=== PATIENT | female | born 1950 | race Caucasian/White ===

== ENCOUNTER 2018-02-05 13:14 | Emergency (ER) | payer OTHER, MEDICARE ==
[~2018-02-05] VITALS: Ht 152.4 cm; Wt 59.4 kg
[~2018-02-05 13:14] MED LIST: LISINOPRIL10 M1 PO; SULFAMETHOXAZO1 EAC1 PO
--- NOTE | 2018-02-05 13:41 | ED DYSPNEA/ASTHMA COMPLAINT ---
History of Present Illness General Chief Complaint: Dyspnea (COPD, CHF, Other) Stated Complaint: NOISY RESPIRATIONS Source: patient, old records Exam Limitations: no limitations Vital Signs & Intake/Output Vital Signs & Intake/Output Vital Signs Date Time Temp Pulse Resp B/P B/P Pulse O2 O2 Flow FiO2 Mean Ox Delivery Rate 02/05 1630 98.4 123 20 174/99 90 02/05 1623 90 02/05 1439 98.0 100 18 170/80 98 Nasal 2.0L Cannula 02/05 1431 98 Nasal 2.0L Cannula 02/05 1422 94 02/05 1339 164/96 02/05 1321 98.0 113 20 221/113 91 Room Air Allergies Coded Allergies: No Known Allergies (02/05/18) Reconcile Medications Albuterol Sulfate (Ventolin Hfa) 90 MCG HFA.AER.AD 2 PUF INH AD PRN RESP. ( Reported) Aspirin/Acetaminophen/Caffeine (Excedrin Extra Strength Caplet) 250 MG-250 MG-65 MG TABLET 1 TAB PO 4XDAILY PRN PAIN (Reported) Ipratropium/Albuterol Sulfate (Iprat-Albut 0.5-3(2.5) MG/3 Ml) 0.5 MG-3 MG (2.5 MG BASE)/3 ML AMPUL.NEB 1 Vial INH BID PRN SHORTNESS OF BREATH Levofloxacin 500 MG TABLET 1 TAB PO DAILY ABX (Reported) Lorazepam 0.5 MG TABLET 1 TAB PO BID PRN ANXIETY (Reported) Nebulizer (Aeroeclipse II) 1 EACH EACH 1 UNIT N BID PRN SHORTNESS OF BREATH Prednisone (Unknown Strength) TABLET (Unknown Dose) PO AD STEROID (Reported) Triage Note: RECEIVED 67 YO FEMALE FILIBERTO FROM HOME WITH HX OF LUNG CA AND COPD, PT REPORTS NOISY INSPIRATIONS X ONE MONTH, GETTING WORSE WITH SHORTNESS OF BREATH. INSPIRATORY STRIDOR TYPE NOISE NOTED, O2 SATS 91% ON ROOM AIR. NO ACUTE DISTRESS NOTED, MILD SHORTNESS OF BREATH, PT REPORTS IT IS NOT WORSE THAN NORMAL LATELY. Triage Nurses Notes Reviewed? yes HPI: 67 y/o female with PMHx of COPD and small cell lung cancer presents to the ED with having trouble breathing for the past month. Pt states she was at her cancer center two days ago where she was put on oxygen and she felt much better. She also states how when she bends over she feels like she can breathe better, although she still feels like she is not getting the full oxygen she needs. Pt's explains how she wakes up every night making loud sounds of gasping for air and he is worried something may be wrong. Pt was prescribed levofloxacin and prednisone two days ago at the cancer center clinic but was not able to say why she was given the levofloxacin. The only other associated symptom is nasal congestion for which she uses Afrin with relief. Pt denies fever, chills, CP, N/ V/D, fatigue, light headedness, or recent travel. Past History Travel History Traveled to [place] past 21 day No Medical History Any Pertinent Medical History? 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 No Review of Systems Review of Systems Constitutional: Reports: see HPI. EENTM: Reports: no symptoms. Respiratory: Reports: no symptoms. Cardiovascular: Reports: no symptoms. GI: Reports: no symptoms. Genitourinary: Reports: no symptoms. Musculoskeletal: Reports: no symptoms. Skin: Reports: no symptoms. Neurological/Psychological: Reports: no symptoms. Hematologic/Endocrine: Reports: no symptoms. Immunologic/Allergic: Reports: no symptoms. All Other Systems: Reviewed and Negative Physical Exam Physical Exam General Appearance: well developed/nourished, mild distress Head: atraumatic, normal appearance Eyes: Bilateral: normal appearance. Ears, Nose, Throat: normal pharynx, normal ENT inspection, hearing grossly normal Neck: normal inspection, full range of motion Respiratory: stridor, wheezing Cardiovascular: regular rate/rhythm Gastrointestinal: soft, non-tender Extremities: normal inspection, normal range of motion Neurologic/Psych: awake, alert, oriented x 3, normal mood/affect Skin: intact, normal color, warm/dry Core Measures ACS in differential dx? No CVA/TIA Diagnosis No Sepsis Present: No Sepsis Focused Exam Completed? No Progress Differential Diagnosis: asthma, AMI, altitude sickness, bronchitis, costochondritis, CHF, COPD, musculoskeletal pain, pericarditis, pulmonary embolism, pneumonia, pneumothorax, rib fracture, unstable angina Plan of Care: Orders Procedure Date/time Status URINALYSIS 02/05 143 Complete TROPONIN LEVEL 02/05 1339 Complete COMPREHENSIVE METABOLIC PANEL 02/05 133 Complete CBC WITHOUT DIFFERENTIAL 02/05 133 Complete EKG 02/05 1339 Active Laboratory Tests 02/05/18 1432: Anion Gap 12, Estimated GFR > 60, BUN/Creatinine Ratio 38.0 H, Glucose 142 H, Calcium 9.9, Total Bilirubin 0.4, AST 15, ALT 25, Alkaline Phosphatase 61, Troponin I < 0.01, Total Protein 7.4, Albumin 4.5, Globulin 2.9, Albumin/ Globulin Ratio 1.6, CBC w Diff MAN DIFF ORDERED, RBC 4.67, MCV 92.4, MCH 30.7, MCHC 33.3, RDW 12.8, MPV 6.8 L, Gran % 93.3 H, Lymphocytes % 5.3 L, Monocytes % 1.3 L, Eosinophils % 0, Basophils % 0.1, Absolute Granulocytes 6.9 H, Absolute Lymphocytes 0.4 L, Absolute Monocytes 0.1, Absolute Eosinophils 0, Absolute Basophils 0, Platelet Estimate VERIFIED BY SMEAR, Normocytic RBCs VERIFIED, Normochromic RBCs VERIFIED 02/05/18 1430: Urine Color YEL, Urine Clarity CLEAR, Urine pH 6.0, Ur Specific [place] 1.020, Urine Protein NEG, Urine Ketones TRACE H, Urine Nitrite NEG, Urine Bilirubin NEG, Urine Urobilinogen 0.2, Ur Leukocyte Esterase SMALL H, Ur Microscopic SEDIMENT EXAMINED, Urine RBC 3-5, Urine WBC 3-5 H, Ur Epithelial Cells FEW, Urine Crystals RARE [place], Urine Bacteria FEW H, Urine Mucus FEW, Urine Hemoglobin SMALL H, Urine Glucose NEG Breathing improved considerably and stridor resolved. Oxygenation improved. Admission to medicine was offered to patient, who repeatedly refused. It was explained that the risk of leaving could lead to worsening breathing, confusion, inability to breathe, choking, coma, . 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 She has insight and understands the risks. Diagnostic Imaging: Viewed by Me: Radiology Read, CT Scan. Discussed w/RAD: Radiology Read, CT Scan. Radiology Impression: PATIENT: SONDRA MEJIAS PRESENT AGE: 67 PATIENT ACCOUNT NO: [id number] : 51 LOCATION: [facility] ORDERING PHYSICIAN: Moisés Stewart MD SERVICE DATE: 02/05/18 EXAM TYPE: CAT - CT NECK W IV CONTRAST EXAMINATION: CT NECK WITH CONTRAST CLINICAL INFORMATION: Stridor. COMPARISON: Chest CT 02/03/2018 and neck radiographs performed earlier the same day. TECHNIQUE: Multidetector CT acquisition of the neck is obtained following the administration of 95 mL of Optiray 320 intravenous contrast without complication. FINDINGS: No inflammation or significant narrowing associated with the subglottic airway nor the trachea. Persistent though decreased dependent secretions within the trachea at the level of the thoracic inlet. The parotid glands are homogeneous in attenuation. The submandibular glands are normal. Small subcentimeter thyroid nodules. No contour abnormality or pathologic enhancement is seen within the oral cavity or pharyngeal mucosal space. No retropharyngeal fluid collection is seen. The laryngeal structures are normal. The parapharyngeal fat is preserved. Atherosclerotic disease involving the carotid bifurcations bilaterally, greater on the left side where there is a suspected 50% stenosis of the proximal left cervical ICA. There is a right IJ Port-A-Cath. Soft tissue thickening and reticulonodular parenchymal opacities within the right suprahilar region are stable in comparison to the 02/03/[address] fibrotic changes associated with the right hilum are stable. Unchanged 6 mm nodule in the right upper lobe. Scarring within the upper lungs bilaterally again noted. The mastoid air cells and visualized portions of the paranasal sinuses are well-aerated. There is a 1.4 cm defect within the cartilaginous nasal septum. There is severe disc volume loss at C5-C6. No suspicious intraosseous lesions. Cerebral volume loss and chronic microangiopathy. IMPRESSION: - No inflammation or significant narrowing associated with the subglottic airway nor the trachea. - Persistent though decreased dependent secretions within the trachea at the level of the thoracic inlet. - Soft tissue thickening and reticulonodular parenchymal opacities in the right suprahilar region are stable in comparison to the 02/04/[address] as is a 6 mm nodule within the right upper lobe. Scarring within the upper lungs bilaterally again noted. - Small subcentimeter thyroid nodules. - There is a 1.4 cm defect within the cartilaginous nasal septum. DICTATED BY: Adonay Cody MD DATE/TIME DICTATED:02/05/181821 PATIENT CARE TECHNICIAN:SILVIA DATE/TIME TRANSCRIBED:1821 CONFIDENTIAL, DO NOT COPY WITHOUT APPROPRIATE AUTHORIZATION. < Electronically signed in Other Vendor System> SIGNED BY: Adonay Cody MD 02/05/18 1836, PATIENT: SONDRA MEJIAS PRESENT AGE: 67 PATIENT ACCOUNT NO: [id number] : 51 LOCATION: [facility] ORDERING PHYSICIAN: Moisés Stewart MD SERVICE DATE: 02/05/18 EXAM TYPE: RAD - XRY-SOFT TISSUE NECK EXAMINATION: XR SOFT TISSUE NECK CLINICAL INDICATION: Bilateral coarse breath sounds and shortness of breath. COMPARISON: None TECHNIQUE: 2 views of the soft tissue neck were obtained. FINDINGS: There is a slight cervicothoracic scoliosis, which likely accounts for the slight deviation of the airway to the right side. There is slight steepling of the subglottic trachea is seen in the lower cervical spine, raising the suspicion of croup. On the lateral view, there is slight ballooning of the hypopharynx. Prevertebral soft tissues are normal in thickness. Portions of the tunneled right jugular catheter are included. Moderate degenerative changes as seen in the lower cervical spine. IMPRESSION: Above findings are suspicious for croup/laryngotracheobronchitis. Close clinical correlation requested. DICTATED BY: Deidra Angel MD DATE/TIME DICTATED:02/05/181613 PATIENT CARE TECHNICIAN:SILVIA DATE/TIME TRANSCRIBED:1613 CONFIDENTIAL, DO NOT COPY WITHOUT APPROPRIATE AUTHORIZATION. < Electronically signed in Other Vendor System> SIGNED BY: Deidra Angel MD 02/05/18 1625 CXR Impression: PATIENT: SONDRA MEJIAS PRESENT AGE: 67 PATIENT ACCOUNT NO: [id number] : 51 LOCATION: [facility] ORDERING PHYSICIAN: Moisés Stewart MD SERVICE DATE: 02/05/18-1340 EXAM TYPE: RAD - XRY-CHEST XRAY, TWO VIEWS EXAMINATION: XR CHEST 2 VIEWS CLINICAL INFORMATION: Bilateral coarse breath sounds and shortness of breath; question congestive heart failure. COMPARISON: CT thorax dated 02/03/2018; chest radiograph dated 03/25/2016. TECHNIQUE: Frontal and lateral views of the chest were obtained. FINDINGS: The heart, great vessels, pulmonary vasculature and mediastinum are normal. The lungs show no focal infiltrate, effusion or pneumothorax. There is a stable small right upper lobe nodule, less well appreciated than on the accompanying CT examinations. Right base nipple shadow noted on the frontal view. There is no acute osseous abnormality. A right internal jugular Port-A-Cath device is seen. IMPRESSION: No active cardiopulmonary disease. There is no significant interim change. DICTATED BY: Parish Leach MD DATE/TIME DICTATED:02/05/181604 PATIENT CARE TECHNICIAN:SILVIA DATE/TIME TRANSCRIBED:02/05/181604 CONFIDENTIAL, DO NOT COPY WITHOUT APPROPRIATE AUTHORIZATION. 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 REturn to ER if new, worsening, or persisting symptoms. Departure Forms: Customer Survey General Discharge Information Critical Care Note Critical Care Note Critical Care Time: non-applicable
[2018-02-05 14:53] LABS: ABSOLUTE BASOPHIL COUNT 0 /CUMM (0.0-0.2); ABSOLUTE EOSINOPHIL COUNT 0 /CUMM (0.0-0.7); ABSOLUTE GRANULOCYTE CT 6.9 /CUMM (1.4-6.5); ABSOLUTE LYMPH COUNT 0.4 /CUMM (1.2-3.4); ABSOLUTE MONOCYTE COUNT 0.1 /CUMM (0.10-0.60); BASOPHIL % 0.1 % (0.0-2.0); EOSINOPHIL % 0 % (0-5); GRANULOCYTE % 93.3 % (42.2-75.2); HEMATOCRIT 43.1 % (37-47); MEAN CORPUSCULAR HGB 30.7 PG (27.0-31.0); MEAN CORPUSCULAR HGB CONC 33.3 G/DL (33.0-37.0); MEAN CORPUSCULAR VOLUME 92.4 FL (81.0-99.0); MEAN PLATELET VOLUME 6.8 FL (7.4-10.4); PLATELET COUNT 277 /CUMM (130-400); RBC DISTRIBUTION WIDTH 12.8 % (11.5-14.5); RED BLOOD CELL CT 4.67 /CUMM (4.20-5.40); WHITE BLOOD CELL COUNT 7.4 /CUMM (4.8-10.8)
--- NOTE | 2018-02-05 16:19 | RADIOLOGY REPORT ---
EXAMINATION: XR CHEST 2 VIEWS CLINICAL INFORMATION: Bilateral coarse breath sounds and shortness of breath; question congestive heart failure. COMPARISON: CT thorax dated 02/03/2018; chest radiograph dated 03/25/2016. TECHNIQUE: Frontal and lateral views of the chest were obtained. FINDINGS: The heart, great vessels, pulmonary vasculature and mediastinum are normal. The lungs show no focal infiltrate, effusion or pneumothorax. There is a stable small right upper lobe nodule, less well appreciated than on the accompanying CT examinations. Right base nipple shadow noted on the frontal view. There is no acute osseous abnormality. A right internal jugular Port-A-Cath device is seen. IMPRESSION: No active cardiopulmonary disease. There is no significant interim change.
[2018-02-05] MEDS ORDERED: VENTOLIN HFA18 GM INH (16:25)
[2018-02-05] MEDS ORDERED: PREDNISONE20 M1 PO (16:25)
--- NOTE | 2018-02-05 16:25 | RADIOLOGY REPORT ---
EXAMINATION: XR SOFT TISSUE NECK CLINICAL INDICATION: Bilateral coarse breath sounds and shortness of breath. COMPARISON: None TECHNIQUE: 2 views of the soft tissue neck were obtained. FINDINGS: There is a slight cervicothoracic scoliosis, which likely accounts for the slight deviation of the airway to the right side. There is slight steepling of the subglottic trachea is seen in the lower cervical spine, raising the suspicion of croup. On the lateral view, there is slight ballooning of the hypopharynx. Prevertebral soft tissues are normal in thickness. Portions of the tunneled right jugular catheter are included. Moderate degenerative changes as seen in the lower cervical spine. IMPRESSION: Above findings are suspicious for croup/laryngotracheobronchitis. Close clinical correlation requested.
[2018-02-05] MEDS ORDERED: LORAZEPAM0.5 M1 PO (16:26)
[2018-02-05] MEDS ORDERED: LEVOFLOXACIN500 M1 PO (16:26)
[2018-02-05] MEDS ORDERED: EXCEDRIN EXTRA1 EACH PO (16:27)
[2018-02-05 16:30] VITALS: BP 174/99
--- NOTE | 2018-02-05 18:36 | CT SCAN REPORT ---
EXAMINATION: CT NECK WITH CONTRAST CLINICAL INFORMATION: Stridor. COMPARISON: Chest CT 02/03/2018 and neck radiographs performed earlier the same day. TECHNIQUE: Multidetector CT acquisition of the neck is obtained following the administration of 95 mL of Optiray 320 intravenous contrast without complication. FINDINGS: No inflammation or significant narrowing associated with the subglottic airway nor the trachea. Persistent though decreased dependent secretions within the trachea at the level of the thoracic inlet. The parotid glands are homogeneous in attenuation. The submandibular glands are normal. Small subcentimeter thyroid nodules. No contour abnormality or pathologic enhancement is seen within the oral cavity or pharyngeal mucosal space. No retropharyngeal fluid collection is seen. The laryngeal structures are normal. The parapharyngeal fat is preserved. Atherosclerotic disease involving the carotid bifurcations bilaterally, greater on the left side where there is a suspected 50% stenosis of the proximal left cervical ICA. There is a right IJ Port-A-Cath. Soft tissue thickening and reticulonodular parenchymal opacities within the right suprahilar region are stable in comparison to the 02/03/[address] fibrotic changes associated with the right hilum are stable. Unchanged 6 mm nodule in the right upper lobe. Scarring within the upper lungs bilaterally again noted. The mastoid air cells and visualized portions of the paranasal sinuses are well-aerated. There is a 1.4 cm defect within the cartilaginous nasal septum. There is severe disc volume loss at C5-C6. No suspicious intraosseous lesions. Cerebral volume loss and chronic microangiopathy. IMPRESSION: - No inflammation or significant narrowing associated with the subglottic airway nor the trachea. - Persistent though decreased dependent secretions within the trachea at the level of the thoracic inlet. - Soft tissue thickening and reticulonodular parenchymal opacities in the right suprahilar region are stable in comparison to the 02/04/[address] as is a 6 mm nodule within the right upper lobe. Scarring within the upper lungs bilaterally again noted. - Small subcentimeter thyroid nodules. - There is a 1.4 cm defect within the cartilaginous nasal septum.
[2018-02-07] MEDS ORDERED: IPRAT-ALBUT 0.5-3 ML INH (17:18)
[2018-02-07] MEDS ORDERED: AEROECLIPSE II1 EACH N (17:18)
== END 2018-02-05 19:15 ==
LOC: ERH 13:14
PROVIDERS: Internal Medicine
DX: J44.1 Chronic obstructive pulmonary disease with (acute) exacerbation (principal); Z87.891 Personal history of nicotine dependence
CPT/HCPCS: 1263; 70360; 71046; 81001; 93005; 93010; 96374; J2930